=== PATIENT | male | born 1955 | race Caucasian/White ===

== ENCOUNTER 2022-07-08 10:13 | Inpatient (IN) | payer OTHER ==
[2022-07-08 10:31] VITALS: BMI 29.2
[2022-07-08] MEDS ORDERED: SODIUM CHLORIDE 0.9% 1000 ML INFUS.BAG IV ONE (10:54)
[2022-07-08] MEDS ORDERED: diazePAM CARPU-JECT 10 MG/2 ML DISP.SYRIN IVPUSH ONE ×3 (10:54→15:49)
[2022-07-08] MEDS ORDERED: ONDANSETRON 4 MG/2 ML VIAL IVPUSH ONE ×2 (10:56→15:47)
[2022-07-08] MEDS ORDERED: ACETAMINOPHEN 1000 MG/100 ML BAG IVPB ONE (10:57)
[2022-07-08] MEDS ORDERED: ACETAMINOPHEN INJECTION 100 ML IVPB ONE (11:16)
[2022-07-08] MEDS ORDERED: ONDANSETRON 4 MG/2 ML VIAL ONE ×2 (11:16→16:33)
[2022-07-08] MEDS ORDERED: diazePAM CARPU-JECT 10 MG/2 ML DISP.SYRIN ONE ×3 (11:16→16:33)
[2022-07-08 11:17] LABS: HEMATOCRIT 41.4 % (35.4-49); HEMOGLOBIN 14.5 GM/dL (11.7-16.9); MCHC 34.9 g/dl (32.0-35.9); MEAN CELL VOLUME 94.6 fl (80-96); MEAN PLT VOLUME 7.8 fl (7.5-11.1); PLATELET COUNT 335 10^3/uL (134-434); RBC 4.38 M/mm3 (4.00-5.60); RDW 15.6 % (11.9-15.9); WHITE BLOOD COUNT 14.6 K/mm3 (4.0-10.0)
[2022-07-08 11:47] LABS: ANISOCYTOSIS 0; HELMET CELLS 0; HOWELL-JOLLY BODIES 0; MACROCYTOSIS 0; OVALOCYTE 0; ROULEAU 0; SICKELED CELLS 0; TARGET CELLS 0; TEAR DROP CELLS 0; TOXIC GRANULATION 0
[2022-07-08] MEDS ORDERED: chlordiazePOXIDE HCL 25 MG CAPSULE PO ONE (13:25)
[2022-07-08] MEDS ORDERED: chlordiazePOXIDE HCL 25 MG CAPSULE ONE (13:51)
[2022-07-08 14:37] LABS: BLOOD UREA NITROGEN 14.9 mg/dL (7-18); CALCIUM 7.9 mg/dL (8.5-10.1)
[2022-07-08 14:38] LABS: ALBUMIN 3.2 g/dl (3.4-5.0)
[2022-07-08 14:40] LABS: CREATININE 1.6 mg/dL (0.55-1.3)
[2022-07-08 14:42] LABS: BILIRUBIN,TOTAL 1.2 mg/dL (0.2-1)
[2022-07-08] MEDS ORDERED: SODIUM CHLORIDE 0.9% 500 ML INFUS.BAG IV ONE ×2 (15:00→15:47)
[2022-07-08 15:57] LABS: TOT PROT 7.4 g/dl (6.4-8.2)
[2022-07-08] MEDS ORDERED: LORazepam 1 MG TABLET ONE ×2 (18:25→20:02)
[2022-07-08] MEDS: LORazepam 1 MG TABLET PO SCH (18:29)
[2022-07-08] MEDS: SODIUM CHLORIDE 1,000 ML IV SCH (19:58)
[2022-07-08] MEDS: LORazepam 1 MG TABLET PO PRN (20:00)
[2022-07-09] MEDS: HEPARIN NA (PORCINE) 5,000 UNITS/ML 1ML VIAL SQ SCH ×4 (02:12→22:09)
[2022-07-09] MEDS: LORazepam 1 MG TABLET PO SCH ×5 (02:13→22:06)
[2022-07-09] MEDS ORDERED: LORazepam 1 MG TABLET ONE ×4 (02:19→11:40)
[2022-07-09] MEDS ORDERED: HEPARIN NA (PORCINE) 5,000 UNITS/ML 1ML VIAL ONE ×3 (02:20→16:21)
[2022-07-09 06:35] LABS: BASO % 0.8 % (0-2.0); EOS % 0.1 % (0-4.5); HEMOGLOBIN 10.6 GM/dL (11.7-16.9); LYMPH % 10.1 % (8-40); MCH 33.5 pg (25.7-33.7); MCHC 35.3 g/dl (32.0-35.9); MEAN CELL VOLUME 94.8 fl (80-96); MEAN PLT VOLUME 8.2 fl (7.5-11.1); PLATELET COUNT 185 10^3/uL (134-434); RBC 3.16 M/mm3 (4.00-5.60); RDW 15.4 % (11.9-15.9); WHITE BLOOD COUNT 10.1 K/mm3 (4.0-10.0)
[2022-07-09 06:57] LABS: ALBUMIN 2.8 g/dl (3.4-5.0); CALCIUM 7.1 mg/dL (8.5-10.1); MAGNESIUM 1.3 mg/dL (1.8-2.4)
[2022-07-09 07:00] LABS: CREATININE 1.1 mg/dL (0.55-1.3); PHOSPHOROUS 2.6 mg/dL (2.5-4.9)
[2022-07-09] MEDS: LORazepam 1 MG TABLET PO PRN (09:32)
[2022-07-09] MEDS ORDERED: PANTOPRAZOLE 40 MG TABLET PO ONE (11:39)
[2022-07-09] MEDS ORDERED: THIAMINE HCL 100 MG TABLET (FP) ONE (11:39)
[2022-07-09] MEDS ORDERED: POTASSIUM CHLORIDE TABS 20 MEQ TABLET.ER (FP) PO ONE (11:39)
[2022-07-09] MEDS ORDERED: FOLIC ACID 1 MG TABLET (FP) ONE (11:39)
[2022-07-09] MEDS ORDERED: LORATADINE 10 MG TABLET ONE (11:40)
[2022-07-09] MEDS ORDERED: MULTIVITAMINS (DAILY MVI) TABLET (FP) ONE (11:40)
[2022-07-09] MEDS ORDERED: PARoxetine HCL 10 MG TABLET ONE (11:40)
[2022-07-09] MEDS: FOLIC ACID 1 MG TABLET (FP) PO SCH (11:56)
[2022-07-09] MEDS: POTASSIUM CHLORIDE TABS 20 MEQ TABLET.ER (FP) PO SCH ×2 (11:56→22:08)
[2022-07-09] MEDS: LORATADINE 10 MG TABLET PO SCH (11:56)
[2022-07-09] MEDS: PANTOPRAZOLE 40 MG TABLET PO SCH (11:57)
[2022-07-09] MEDS: MULTIVITAMINS (DAILY MVI) TABLET (FP) PO SCH (11:57)
[2022-07-09] MEDS: THIAMINE HCL 100 MG TABLET (FP) PO SCH (11:57)
[2022-07-09] MEDS: PARoxetine HCL 10 MG TABLET PO SCH (11:57)
[2022-07-09] MEDS ORDERED: MAGNESIUM SULF 50% (8.12 MEQ/2 ML-1 GM VIAL) IVPB ONE (13:34)
[2022-07-09] MEDS ORDERED: MAGNESIUM SULFATE IN WATER 2 GM/50 ML IVPB IVPB ONE (16:21)
[2022-07-09] MEDS: SODIUM CHLORIDE 1,000 ML IV SCH (16:37)
[2022-07-09] MEDS: MAGNESIUM OXIDE 400 MG TABLET (FP) PO SCH (22:08)
[2022-07-10] MEDS ORDERED: ONDANSETRON 4 MG/2 ML VIAL IVPUSH ONE (00:18)
[2022-07-10] MEDS: SODIUM CHLORIDE 1,000 ML IV SCH (03:26)
[2022-07-10] MEDS: HEPARIN NA (PORCINE) 5,000 UNITS/ML 1ML VIAL SQ SCH ×3 (06:01→21:26)
[2022-07-10] MEDS: LORazepam 1 MG TABLET PO SCH ×4 (06:02→22:00)
[2022-07-10 09:21] LABS: BASO % 0.1 % (0-2.0); EOS % 1.5 % (0-4.5); HEMATOCRIT 27.6 % (35.4-49); HEMOGLOBIN 9.4 GM/dL (11.7-16.9); LYMPH % 21.1 % (8-40); MCH 32.3 pg (25.7-33.7); MCHC 34.1 g/dl (32.0-35.9); MEAN CELL VOLUME 94.9 fl (80-96); MEAN PLT VOLUME 8.5 fl (7.5-11.1); MONO % 6.4 % (3.8-10.2); NEUT % 70.9 % (42.8-82.8); PLATELET COUNT 128 10^3/uL (134-434); RBC 2.91 M/mm3 (4.00-5.60); RDW 15.2 % (11.9-15.9)
[2022-07-10 09:49] LABS: CALCIUM 7.6 mg/dL (8.5-10.1)
[2022-07-10 09:50] LABS: ALBUMIN 2.5 g/dl (3.4-5.0); BLOOD UREA NITROGEN 10.6 mg/dL (7-18)
[2022-07-10 09:51] LABS: MAGNESIUM 1.9 mg/dL (1.8-2.4)
[2022-07-10 09:53] LABS: CREATININE 0.6 mg/dL (0.55-1.3)
[2022-07-10 09:54] LABS: BILIRUBIN,TOTAL 0.9 mg/dL (0.2-1); TOT PROT 5.6 g/dl (6.4-8.2)
[2022-07-10] MEDS: MAGNESIUM OXIDE 400 MG TABLET (FP) PO SCH ×2 (10:33→21:25)
[2022-07-10] MEDS: LORATADINE 10 MG TABLET PO SCH (10:33)
[2022-07-10] MEDS: FOLIC ACID 1 MG TABLET (FP) PO SCH (10:34)
[2022-07-10] MEDS: PANTOPRAZOLE 40 MG TABLET PO SCH (10:35)
[2022-07-10] MEDS: THIAMINE HCL 100 MG TABLET (FP) PO SCH (10:35)
[2022-07-10] MEDS: MULTIVITAMINS (DAILY MVI) TABLET (FP) PO SCH (10:35)
[2022-07-10] MEDS: PARoxetine HCL 10 MG TABLET PO SCH (11:10)
[2022-07-10 15:07] VITALS: RESP 18
[2022-07-10] MEDS: ACETAMINOPHEN 1000 MG/100 ML BAG IVPB PRN (16:45)
[2022-07-11] MEDS ORDERED: LORazepam 0.5 MG TABLET PO PRN
[2022-07-11] MEDS: HEPARIN NA (PORCINE) 5,000 UNITS/ML 1ML VIAL SQ SCH ×3 (06:17→22:46)
[2022-07-11] MEDS: LORazepam 0.5 MG TABLET PO SCH ×4 (06:17→22:46)
[2022-07-11 08:52] LABS: BASO % 0.3 % (0-2.0); EOS % 3.3 % (0-4.5); HEMATOCRIT 28.2 % (35.4-49); HEMOGLOBIN 10.1 GM/dL (11.7-16.9); LYMPH % 22.3 % (8-40); MCH 33.5 pg (25.7-33.7); MCHC 35.7 g/dl (32.0-35.9); MEAN CELL VOLUME 93.8 fl (80-96); MEAN PLT VOLUME 8.4 fl (7.5-11.1); MONO % 9.8 % (3.8-10.2); NEUT % 64.3 % (42.8-82.8); PLATELET COUNT 129 10^3/uL (134-434); RDW 14.5 % (11.9-15.9); WHITE BLOOD COUNT 4.2 K/mm3 (4.0-10.0)
[2022-07-11] MEDS: MULTIVITAMINS (DAILY MVI) TABLET (FP) PO SCH (09:05)
[2022-07-11] MEDS: FOLIC ACID 1 MG TABLET (FP) PO SCH (09:06)
[2022-07-11] MEDS: THIAMINE HCL 100 MG TABLET (FP) PO SCH (09:06)
[2022-07-11] MEDS: LORATADINE 10 MG TABLET PO SCH (09:06)
[2022-07-11] MEDS: PANTOPRAZOLE 40 MG TABLET PO SCH (09:06)
[2022-07-11] MEDS: MAGNESIUM OXIDE 400 MG TABLET (FP) PO SCH ×2 (09:06→22:46)
[2022-07-11 09:10] LABS: ALBUMIN 2.6 g/dl (3.4-5.0); CALCIUM 8.4 mg/dL (8.5-10.1)
[2022-07-11 09:11] LABS: MAGNESIUM 1.8 mg/dL (1.8-2.4)
[2022-07-11 09:13] LABS: CREATININE 0.6 mg/dL (0.55-1.3)
[2022-07-11 09:15] LABS: BILIRUBIN,TOTAL 1.1 mg/dL (0.2-1); TOT PROT 5.8 g/dl (6.4-8.2)
[2022-07-11] MEDS: PARoxetine HCL 10 MG TABLET PO SCH (09:21)
[2022-07-11] MEDS: ACETAMINOPHEN 1000 MG/100 ML BAG IVPB PRN (09:45)
[2022-07-11] MEDS ORDERED: KETOROLAC TROMETHAMINE 30 MG/1 ML VIAL IM ONE (17:15)
[2022-07-11 21:26] VITALS: TEMP 98.4
[2022-07-12] MEDS: HEPARIN NA (PORCINE) 5,000 UNITS/ML 1ML VIAL SQ SCH (04:59)
[2022-07-12] MEDS ORDERED: LORazepam 0.5 MG TABLET PO ONE (05:00)
[2022-07-12 05:13] VITALS: BP 140/88; PULSE 99
[2022-07-12] MEDS ORDERED: traMADol HCL 50 MG TABLET PO PRN (09:11)
[2022-07-12] MEDS ORDERED: ACETAMINOPHEN 325 MG TABLET (FP) PO PRN (09:12)
[2022-07-12 09:24] LABS: BASO % 0.4 % (0-2.0); EOS % 4.5 % (0-4.5); HEMATOCRIT 30.2 % (35.4-49); HEMOGLOBIN 10.9 GM/dL (11.7-16.9); LYMPH % 22.2 % (8-40); MCH 33.8 pg (25.7-33.7); MCHC 36.2 g/dl (32.0-35.9); MEAN CELL VOLUME 93.2 fl (80-96); MEAN PLT VOLUME 8.9 fl (7.5-11.1); MONO % 13.1 % (3.8-10.2); NEUT % 59.8 % (42.8-82.8); PLATELET COUNT 161 10^3/uL (134-434); RBC 3.24 M/mm3 (4.00-5.60); RDW 15.1 % (11.9-15.9); WHITE BLOOD COUNT 4.7 K/mm3 (4.0-10.0)
[2022-07-12] MEDS: FOLIC ACID 1 MG TABLET (FP) PO SCH (09:36)
[2022-07-12] MEDS: MAGNESIUM OXIDE 400 MG TABLET (FP) PO SCH (09:36)
[2022-07-12] MEDS: LORATADINE 10 MG TABLET PO SCH (09:36)
[2022-07-12] MEDS: THIAMINE HCL 100 MG TABLET (FP) PO SCH (09:37)
[2022-07-12] MEDS: MULTIVITAMINS (DAILY MVI) TABLET (FP) PO SCH (09:37)
[2022-07-12] MEDS: PANTOPRAZOLE 40 MG TABLET PO SCH (09:37)
[2022-07-12 09:42] LABS: ALBUMIN 2.8 g/dl (3.4-5.0); BLOOD UREA NITROGEN 9.2 mg/dL (7-18); MAGNESIUM 1.8 mg/dL (1.8-2.4)
[2022-07-12] MEDS: PARoxetine HCL 10 MG TABLET PO SCH (09:44)
[2022-07-12 09:45] LABS: CREATININE 0.6 mg/dL (0.55-1.3)
[2022-07-12 09:46] LABS: BILIRUBIN,TOTAL 0.7 mg/dL (0.2-1); TOT PROT 6.1 g/dl (6.4-8.2)
== END 2022-07-12 09:30 | DRG 897 ==
LOC: JER 10:13 → JERBED 16:21 → J6S 07-09 17:51
PROVIDERS: ADMIT Internal Medicine; ATTEND Nurse Practitioner Acute Care
PROC: HZ2ZZZZ Detoxification Services for Substance Abuse Treatment (ICD-10-PCS; principal; 2022-07-08)
DX: F10.239 Alcohol dependence with withdrawal, unspecified (principal); M62.82 Rhabdomyolysis; N17.9 Acute kidney failure, unspecified; J44.9 Chronic obstructive pulmonary disease, unspecified; J45.909 Unspecified asthma, uncomplicated; F10.229 Alcohol dependence with intoxication, unspecified
CPT/HCPCS: 0241U-QW; 36415; 70450-TC; 72170-TC-FY; 72192-TC; 73200-TC-RT; 73502-TC-RT-FY; 80053; 82550; 82553; 83690; 83735; 84100; 85025; 93005; 93010; 97116-GP; 97162-GP; 99291; J1644

== ENCOUNTER 2022-11-13 15:27 | Inpatient (IN) | payer OTHER ==
[2022-11-13 18:24] LABS: BASO % 0.3 % (0-2.0); EOS % 1.1 % (0-4.5); HEMATOCRIT 43.9 % (35.4-49); HEMOGLOBIN 15.1 GM/dL (11.7-16.9); LYMPH % 8.6 % (8-40); MCH 30.1 pg (25.7-33.7); MCHC 34.3 g/dl (32.0-35.9); MEAN CELL VOLUME 87.8 fl (80-96); MEAN PLT VOLUME 8.5 fl (7.5-11.1); PLATELET COUNT 224 10^3/uL (134-434); RDW 17.9 % (11.9-15.9); WHITE BLOOD COUNT 9.4 K/mm3 (4.0-10.0)
[2022-11-13 18:46] LABS: POTASSIUM 3.3 mmol/L (3.5-5.1)
[2022-11-13 18:49] LABS: CALCIUM 9.5 mg/dL (8.5-10.1)
[2022-11-13 18:50] LABS: ALBUMIN 3.9 g/dl (3.4-5.0); BLOOD UREA NITROGEN 34.7 mg/dL (7-18)
[2022-11-13 18:53] LABS: CREATININE 0.9 mg/dL (0.55-1.3)
[2022-11-13 18:55] LABS: BILIRUBIN,TOTAL 1.9 mg/dL (0.2-1)
[2022-11-13] MEDS ORDERED: diazePAM 5 MG TABLET PO ONE (19:46)
[2022-11-13] MEDS ORDERED: diazePAM 5 MG TABLET ONE (19:53)
[2022-11-14] MEDS ORDERED: FOLIC ACID INJECTION - 1 MG, THIAMINE HCL 100 MG, MULTIVIT INJECTION ADULT 10 ML in SOD... IVPB ONE ×2 (00:23→05:15)
[2022-11-14] MEDS ORDERED: POTASSIUM CHLORIDE ORAL LIQUID 20 MEQ/15 ML PO ONE (01:24)
[2022-11-14] MEDS ORDERED: LORazepam 1 MG TABLET PO PRN (01:36)
[2022-11-14 02:15] LABS: MAGNESIUM 2.4 mg/dL (1.8-2.4)
[2022-11-14] MEDS: LACTATED RINGERS SOLUTION 1,000 ML/1,000 ML INFUS.BAG IV SCH (02:25)
[2022-11-14] MEDS: LORazepam 1 MG TABLET PO SCH ×4 (05:09→22:21)
[2022-11-14 05:43] VITALS: BMI 29.2
[2022-11-14] MEDS ORDERED: PARoxetine HCL 30 MG TABLET PO SCH (10:00)
[2022-11-14 10:25] LABS: BASO % 0.4 % (0-2.0); EOS % 4.5 % (0-4.5); HEMATOCRIT 35.6 % (35.4-49); HEMOGLOBIN 12.5 GM/dL (11.7-16.9); LYMPH % 18.2 % (8-40); MCH 30.9 pg (25.7-33.7); MCHC 35.1 g/dl (32.0-35.9); MEAN CELL VOLUME 88.1 fl (80-96); MEAN PLT VOLUME 8.5 fl (7.5-11.1); MONO % 14.4 % (3.8-10.2); NEUT % 62.5 % (42.8-82.8); PLATELET COUNT 174 10^3/uL (134-434); RBC 4.05 M/mm3 (4.00-5.60); RDW 17.8 % (11.9-15.9); WHITE BLOOD COUNT 6.2 K/mm3 (4.0-10.0)
[2022-11-14 10:34] LABS: POTASSIUM 3.1 mmol/L (3.5-5.1)
[2022-11-14 10:42] LABS: BLOOD UREA NITROGEN 24.6 mg/dL (7-18); CALCIUM 8.3 mg/dL (8.5-10.1); MAGNESIUM 2.1 mg/dL (1.8-2.4)
[2022-11-14 10:47] LABS: CREATININE 0.6 mg/dL (0.55-1.3); PHOSPHOROUS 2.6 mg/dL (2.5-4.9)
[2022-11-14 10:48] LABS: BILIRUBIN,TOTAL 1.5 mg/dL (0.2-1); TOT PROT 6.2 g/dl (6.4-8.2)
[2022-11-14 10:49] LABS: ALBUMIN 2.9 g/dl (3.4-5.0)
[2022-11-14] MEDS: ENOXAPARIN NA (PORCINE) 40 MG/0.4 ML DISP.SYRIN SQ SCH (11:00)
[2022-11-14] MEDS: FOLIC ACID 1 MG TABLET (FP) PO SCH (11:00)
[2022-11-14] MEDS: PANTOPRAZOLE 40 MG TABLET PO SCH (11:01)
[2022-11-14] MEDS: MULTIVITAMINS (DAILY MVI) TABLET (FP) PO SCH (11:01)
[2022-11-14] MEDS: THIAMINE HCL 100 MG TABLET (FP) PO SCH (11:01)
[2022-11-14] MEDS: PAROXETINE HCL 20 MG, PAROXETINE HCL 10 MG PO SCH (11:01)
[2022-11-14 11:12] LABS: URINE APPEARANCE CLEAR; URINE BILIRUBIN 2+ (NEGATIVE); URINE COLOR DK YELLOW; URINE GLUCOSE (UA) NEGATIVE (NEGATIVE); URINE KETONE 2+ (NEGATIVE); URINE LEUK ESTERASE NEGATIVE (NEGATIVE); URINE NITRITE NEGATIVE (NEGATIVE); URINE PROTEIN TRACE (NEGATIVE)
[2022-11-14] MEDS: POTASSIUM CHLORIDE TABS 20 MEQ TABLET.ER (FP) PO SCH ×2 (14:15→22:21)
[2022-11-15] MEDS: LACTATED RINGERS SOLUTION 1,000 ML/1,000 ML INFUS.BAG IV SCH ×2 (01:47→20:59)
[2022-11-15] MEDS: LORazepam 1 MG TABLET PO SCH ×4 (05:34→22:15)
[2022-11-15 08:18] LABS: COCAINE, UR NEGATIVE (NEGATIVE); OPIATES, URI NEGATIVE (NEGATIVE)
[2022-11-15 08:20] LABS: METHADONE, UR NEGATIVE (NEGATIVE); PHENCYCLIDINE,URINE NEGATIVE (NEGATIVE); URINE AMPHETAMINES NEGATIVE (NEGATIVE)
[2022-11-15 08:22] LABS: URINE BARBITURATES NEGATIVE (NEGATIVE); URINE BENZODIAZEPINES NEGATIVE (NEGATIVE)
[2022-11-15] MEDS: PAROXETINE HCL 20 MG, PAROXETINE HCL 10 MG PO SCH (10:03)
[2022-11-15] MEDS: MULTIVITAMINS (DAILY MVI) TABLET (FP) PO SCH (10:03)
[2022-11-15] MEDS: THIAMINE HCL 100 MG TABLET (FP) PO SCH (10:04)
[2022-11-15] MEDS: FOLIC ACID 1 MG TABLET (FP) PO SCH (10:04)
[2022-11-15] MEDS: PANTOPRAZOLE 40 MG TABLET PO SCH (10:04)
[2022-11-15] MEDS: ENOXAPARIN NA (PORCINE) 40 MG/0.4 ML DISP.SYRIN SQ SCH (10:05)
[2022-11-15] MEDS: POTASSIUM CHLORIDE TABS 20 MEQ TABLET.ER (FP) PO SCH (10:05)
[2022-11-15 10:07] LABS: BASO % 0.6 % (0-2.0); EOS % 5.3 % (0-4.5); HEMATOCRIT 36.8 % (35.4-49); HEMOGLOBIN 12.2 GM/dL (11.7-16.9); LYMPH % 25.8 % (8-40); MCHC 33.1 g/dl (32.0-35.9); MEAN CELL VOLUME 90.7 fl (80-96); MEAN PLT VOLUME 8.6 fl (7.5-11.1); MONO % 17.7 % (3.8-10.2); NEUT % 50.6 % (42.8-82.8); PLATELET COUNT 160 10^3/uL (134-434); RBC 4.06 M/mm3 (4.00-5.60); RDW 17.4 % (11.9-15.9); WHITE BLOOD COUNT 3.7 K/mm3 (4.0-10.0)
[2022-11-15 10:22] LABS: POTASSIUM 3.7 mmol/L (3.5-5.1)
[2022-11-15 10:25] LABS: ALBUMIN 2.7 g/dl (3.4-5.0); BLOOD UREA NITROGEN 13.6 mg/dL (7-18); CALCIUM 8.3 mg/dL (8.5-10.1); MAGNESIUM 1.9 mg/dL (1.8-2.4)
[2022-11-15 10:28] LABS: CREATININE 0.6 mg/dL (0.55-1.3)
[2022-11-15 10:30] LABS: TOT PROT 5.9 g/dl (6.4-8.2)
[2022-11-16] MEDS ORDERED: LORazepam 0.5 MG TABLET PO PRN
[2022-11-16] MEDS: LORazepam 0.5 MG TABLET PO SCH ×4 (05:43→22:46)
[2022-11-16] MEDS: LACTATED RINGERS SOLUTION 1,000 ML/1,000 ML INFUS.BAG IV SCH ×3 (05:44→22:49)
[2022-11-16 08:41] LABS: HEMATOCRIT 31.9 % (35.4-49); MCH 30.5 pg (25.7-33.7); MCHC 34.6 g/dl (32.0-35.9); MEAN CELL VOLUME 88.3 fl (80-96); MEAN PLT VOLUME 7.7 fl (7.5-11.1); PLATELET COUNT 142 10^3/uL (134-434); RBC 3.61 M/mm3 (4.00-5.60); RDW 17.4 % (11.9-15.9); WHITE BLOOD COUNT 2.7 K/mm3 (4.0-10.0)
[2022-11-16 08:42] LABS: INR 1.15 (0.83-1.09); PROTHROMBIN TIME (PATIENT) 13.3 SEC (9.7-13.0)
[2022-11-16 08:59] LABS: POTASSIUM 3.9 mmol/L (3.5-5.1)
[2022-11-16 09:03] LABS: ALBUMIN 2.6 g/dl (3.4-5.0); CALCIUM 8.1 mg/dL (8.5-10.1)
[2022-11-16 09:04] LABS: BLOOD UREA NITROGEN 9.2 mg/dL (7-18); MAGNESIUM 1.7 mg/dL (1.8-2.4)
[2022-11-16 09:06] LABS: CREATININE 0.6 mg/dL (0.55-1.3)
[2022-11-16 09:08] LABS: BILIRUBIN,TOTAL 0.6 mg/dL (0.2-1); TOT PROT 5.4 g/dl (6.4-8.2)
[2022-11-16 09:18] LABS: ANISOCYTOSIS 1+; MACROCYTOSIS 0
[2022-11-16] MEDS: ENOXAPARIN NA (PORCINE) 40 MG/0.4 ML DISP.SYRIN SQ SCH (10:42)
[2022-11-16] MEDS: PAROXETINE HCL 20 MG, PAROXETINE HCL 10 MG PO SCH (10:43)
[2022-11-16] MEDS: FOLIC ACID 1 MG TABLET (FP) PO SCH (10:43)
[2022-11-16] MEDS: THIAMINE HCL 100 MG TABLET (FP) PO SCH (10:43)
[2022-11-16] MEDS: PANTOPRAZOLE 40 MG TABLET PO SCH (10:43)
[2022-11-16] MEDS: MULTIVITAMINS (DAILY MVI) TABLET (FP) PO SCH (10:43)
[2022-11-16] MEDS ORDERED: CEFTRIAXONE 1 GM in DEXTROSE 5%-WATER - 50 ML IVPB SCH (11:45)
[2022-11-16] MEDS: CEFTRIAXONE 1 GM in DEXTROSE 5%-WATER - 50 ML IVPB SCH (13:48)
[2022-11-16] MEDS ORDERED: MAGNESIUM 1GM/D5W 100ML - 100 ML IVPB IVPB ONE (14:00)
[2022-11-17] MEDS ORDERED: LORazepam 0.5 MG TABLET PO ONE (05:00)
[2022-11-17] MEDS: LACTATED RINGERS SOLUTION 1,000 ML/1,000 ML INFUS.BAG IV SCH (07:11)
[2022-11-17] MEDS: PAROXETINE HCL 20 MG, PAROXETINE HCL 10 MG PO SCH (09:53)
[2022-11-17] MEDS: ENOXAPARIN NA (PORCINE) 40 MG/0.4 ML DISP.SYRIN SQ SCH (09:53)
[2022-11-17] MEDS: FOLIC ACID 1 MG TABLET (FP) PO SCH (09:53)
[2022-11-17] MEDS: THIAMINE HCL 100 MG TABLET (FP) PO SCH (09:53)
[2022-11-17] MEDS: MULTIVITAMINS (DAILY MVI) TABLET (FP) PO SCH (09:53)
[2022-11-17] MEDS: CEFTRIAXONE 1 GM in DEXTROSE 5%-WATER - 50 ML IVPB SCH (09:53)
[2022-11-17] MEDS: PANTOPRAZOLE 40 MG TABLET PO SCH (09:53)
[2022-11-17 10:00] LABS: HEMATOCRIT 35.1 % (35.4-49); HEMOGLOBIN 12.1 GM/dL (11.7-16.9); MCH 30.4 pg (25.7-33.7); MCHC 34.4 g/dl (32.0-35.9); MEAN CELL VOLUME 88.4 fl (80-96); PLATELET COUNT 201 10^3/uL (134-434); RBC 3.97 M/mm3 (4.00-5.60); RDW 17.3 % (11.9-15.9); WHITE BLOOD COUNT 3.3 K/mm3 (4.0-10.0)
[2022-11-17 10:26] LABS: POTASSIUM 4.3 mmol/L (3.5-5.1)
[2022-11-17 10:31] LABS: CALCIUM 8.5 mg/dL (8.5-10.1)
[2022-11-17 10:32] LABS: ALBUMIN 2.9 g/dl (3.4-5.0)
[2022-11-17 10:34] LABS: CREATININE 0.6 mg/dL (0.55-1.3)
[2022-11-17 10:36] LABS: BILIRUBIN,TOTAL 0.5 mg/dL (0.2-1); MAGNESIUM 1.9 mg/dL (1.8-2.4); TOT PROT 6.3 g/dl (6.4-8.2)
[2022-11-17 10:56] LABS: ANISOCYTOSIS 0; MACROCYTOSIS 1+
[2022-11-18] MEDS: PAROXETINE HCL 20 MG, PAROXETINE HCL 10 MG PO SCH (10:14)
[2022-11-18] MEDS: ENOXAPARIN NA (PORCINE) 40 MG/0.4 ML DISP.SYRIN SQ SCH (10:14)
[2022-11-18] MEDS: CEFTRIAXONE 1 GM in DEXTROSE 5%-WATER - 50 ML IVPB SCH (10:14)
[2022-11-18] MEDS: THIAMINE HCL 100 MG TABLET (FP) PO SCH (10:15)
[2022-11-18] MEDS: PANTOPRAZOLE 40 MG TABLET PO SCH (10:15)
[2022-11-18] MEDS: MULTIVITAMINS (DAILY MVI) TABLET (FP) PO SCH (10:15)
[2022-11-18] MEDS: FOLIC ACID 1 MG TABLET (FP) PO SCH (10:15)
[2022-11-18 12:33] VITALS: RESP 20
[2022-11-18 23:00] VITALS: BP 142/88; PULSE 91; TEMP 98.2
== END 2022-11-19 02:30 | DRG 897 ==
LOC: JER 15:27 → JERBED 19:59 → INTOOBSV 19:59 → UNDOADMOB 19:59 → OBSVTOIN 19:59 → JERBED 11-14 01:30 → OBSVTOIN 11-14 01:30 → J8W 11-14 02:40
PROVIDERS: ADMIT Internal Medicine; ATTEND Nurse Practitioner Family
PROC: HZ2ZZZZ Detoxification Services for Substance Abuse Treatment (ICD-10-PCS; principal; 2022-11-13)
DX: F10.239 Alcohol dependence with withdrawal, unspecified (principal); M62.82 Rhabdomyolysis; N39.0 Urinary tract infection, site not specified; R74.01 Elevation of levels of liver transaminase levels; E87.6 Hypokalemia; E83.42 Hypomagnesemia; Z85.118 Personal history of other malignant neoplasm of bronchus and lung
CPT/HCPCS: 36415; 70450-TC; 71045-TC-FY; 72125-TC; 72170-TC-FY; 80053; 80307; 81003; 82550; 82553; 82962; 83036; 83735; 84100; 84443; 85025; 85610; 87086; 87186; 87635; 93005; 93010; 97116-GP; 99285-25

== ENCOUNTER 2023-02-03 10:06 | Inpatient (IN) | payer OTHER ==
[2023-02-03 10:30] VITALS: BMI 27.8
[2023-02-03] MEDS ORDERED: PANTOPRAZOLE SODIUM 40 MG VIAL IVPUSH ONE (10:38)
[2023-02-03] MEDS ORDERED: CEFTRIAXONE 1,000 MG in DEXTROSE 5%-WATER - 50 ML IVPB ONE (10:39)
[2023-02-03] MEDS ORDERED: PANTOPRAZOLE SODIUM 40 MG VIAL ONE ×2 (11:35→16:33)
[2023-02-03] MEDS ORDERED: CEFTRIAXONE 1 GM/50 ML BAG ONE (11:35)
[2023-02-03 12:19] LABS: BASO % 0.3 % (0-2.0); EOS % 0.1 % (0-4.5); HEMATOCRIT 42.7 % (35.4-49); HEMOGLOBIN 14.4 GM/dL (11.7-16.9); MCH 30.2 pg (25.7-33.7); MCHC 33.7 g/dl (32.0-35.9); MEAN CELL VOLUME 89.6 fl (80-96); MEAN PLT VOLUME 8.8 fl (7.5-11.1); MONO % 8.2 % (3.8-10.2); NEUT % 79.4 % (42.8-82.8); PLATELET COUNT 220 10^3/uL (134-434); RBC 4.76 M/mm3 (4.00-5.60); RDW 14.8 % (11.9-15.9); RETICULOCYTES 0.87 % (0.5-1.5); WHITE BLOOD COUNT 10.8 K/mm3 (4.0-10.0)
[2023-02-03 12:24] LABS: INR 1.05 (0.83-1.09); PROTHROMBIN TIME (PATIENT) 12.2 SEC (9.7-13.0)
[2023-02-03 12:26] LABS: ACTIVATED PTT 26.8 SECONDS (25.2-36.5)
[2023-02-03 12:47] LABS: POTASSIUM 3.2 mmol/L (3.5-5.1)
[2023-02-03 12:49] LABS: BLOOD UREA NITROGEN 32.9 mg/dL (7-18); CALCIUM 9.4 mg/dL (8.5-10.1)
[2023-02-03 12:50] LABS: ALBUMIN 3.7 g/dl (3.4-5.0)
[2023-02-03 12:54] LABS: BILIRUBIN,TOTAL 1.6 mg/dL (0.2-1); TOT PROT 7.4 g/dl (6.4-8.2)
[2023-02-03 13:42] LABS: URINE APPEARANCE CLEAR; URINE BILIRUBIN 1+ (NEGATIVE); URINE COLOR DK YELLOW; URINE GLUCOSE (UA) NEGATIVE (NEGATIVE)
[2023-02-03 13:44] LABS: URINE KETONE 1+ (NEGATIVE)
[2023-02-03 13:45] LABS: PH,URINE 5.5 (5.0-8.0); URINE LEUK ESTERASE TRACE (NEGATIVE); URINE NITRITE NEGATIVE (NEGATIVE); URINE PROTEIN 1+ (NEGATIVE)
[2023-02-03 15:17] LABS: EPI CELLS 5 /uL (0-25.1); HYALINE CASTS 1 /uL (0-3.1); URINE BACTERIA 18 /uL (0-1359); URINE RBC 34 /uL (0-23.9); URINE WBC 9 /uL (0-25.8)
[2023-02-03] MEDS ORDERED: SODIUM CHLORIDE 1,000 ML IV SCH ×2 (16:00→16:45)
[2023-02-03] MEDS ORDERED: PANTOPRAZOLE SODIUM 160 MG in SODIUM CHLORIDE 250 ML IVPB SCH (16:30)
[2023-02-03] MEDS: DEXTROSE 5%-LACTATED RINGERS 1,000 ML IV SCH (17:37)
[2023-02-03] MEDS ORDERED: chlordiazePOXIDE HCL 25 MG CAPSULE ONE (22:03)
[2023-02-03] MEDS: chlordiazePOXIDE HCL 25 MG CAPSULE PO SCH (22:13)
[2023-02-03] MEDS: CLOTRIMAZOLE 1% CREAM TP SCH (22:27)
[2023-02-03] MEDS ORDERED: MELATONIN 5 MG TABLETS ONE (23:20)
[2023-02-03] MEDS: MELATONIN 5 MG TABLETS PO SCH (23:35)
[2023-02-04] MEDS ORDERED: PANTOPRAZOLE SODIUM 160 MG in SODIUM CHLORIDE 290 ML IVPB SCH (03:15)
[2023-02-04] MEDS: chlordiazePOXIDE HCL 25 MG CAPSULE PO SCH (05:56)
[2023-02-04 09:20] LABS: BASO % 0.2 % (0-2.0); EOS % 2.4 % (0-4.5); HEMATOCRIT 37.7 % (35.4-49); HEMOGLOBIN 12.3 GM/dL (11.7-16.9); LYMPH % 26.7 % (8-40); MCH 29.6 pg (25.7-33.7); MCHC 32.6 g/dl (32.0-35.9); MEAN CELL VOLUME 90.7 fl (80-96); MEAN PLT VOLUME 8.9 fl (7.5-11.1); MONO % 7.8 % (3.8-10.2); NEUT % 62.9 % (42.8-82.8); PLATELET COUNT 150 10^3/uL (134-434); RBC 4.15 M/mm3 (4.00-5.60); RDW 14.6 % (11.9-15.9); WHITE BLOOD COUNT 5.4 K/mm3 (4.0-10.0)
[2023-02-04 09:41] LABS: CHLORIDE 101 mmol/L (98-107); SODIUM 140 mmol/L (136-145)
[2023-02-04 09:44] LABS: CO2 31 mmol/L (21-32); GLUCOSE,RANDOM 100 mg/dL (74-106); MAGNESIUM 1.9 mg/dL (1.8-2.4)
[2023-02-04 09:45] LABS: BLOOD UREA NITROGEN 17.8 mg/dL (7-18)
[2023-02-04 09:47] LABS: CREATININE 0.8 mg/dL (0.55-1.3); PHOSPHOROUS 2.7 mg/dL (2.5-4.9); SGOT/AST 41 U/L (15-37); SGPT/ALT 27 U/L (13-61)
[2023-02-04 09:48] LABS: BILIRUBIN,TOTAL 1.2 mg/dL (0.2-1)
[2023-02-04] MEDS: FOLIC ACID 1 MG TABLET (FP) PO SCH (09:48)
[2023-02-04] MEDS: THIAMINE HCL 100 MG TABLET (FP) PO SCH (09:48)
[2023-02-04 10:34] LABS: GAMMA GLUTAMYL TRANSPEPTIDASE 104 U/L (5-85)
[2023-02-04 10:37] LABS: BILIRUBIN,DIRECT 0.4 mg/dL (0.0-0.2)
[2023-02-04 10:38] LABS: ALBUMIN 2.9 g/dl (3.4-5.0); ALK PHOS 96 U/L (45-117); ANION GAP 8 mmol/L (4-13); CALCIUM 7.6 mg/dL (8.5-10.1); POTASSIUM 2.6 mmol/L (3.5-5.1)
[2023-02-04] MEDS ORDERED: POTASSIUM CHLORIDE TABS 20 MEQ TABLET.ER (FP) PO ONE ×3 (11:00→18:00)
[2023-02-04] MEDS: CLOTRIMAZOLE 1% CREAM TP SCH ×2 (11:04→21:33)
[2023-02-04] MEDS: KCL 10 MEQ IVPB 10 MEQ/100 ML INFUS.BAG IVPB SCH ×3 (12:03→14:03)
[2023-02-04 14:18] LABS: CALCIUM 8.3 mg/dL (8.5-10.1)
[2023-02-04 14:19] LABS: BLOOD UREA NITROGEN 16.6 mg/dL (7-18)
[2023-02-04 14:22] LABS: CREATININE 0.8 mg/dL (0.55-1.3)
[2023-02-04] MEDS: DEXTROSE 5%-LACTATED RINGERS 1,000 ML IV SCH ×2 (15:07→17:15)
[2023-02-04 20:44] LABS: POTASSIUM 3.3 mmol/L (3.5-5.1)
[2023-02-04 20:45] LABS: CALCIUM 7.8 mg/dL (8.5-10.1); MAGNESIUM 1.9 mg/dL (1.8-2.4)
[2023-02-04 20:46] LABS: BLOOD UREA NITROGEN 15.7 mg/dL (7-18)
[2023-02-04] MEDS: PANTOPRAZOLE SODIUM 40 MG VIAL IVPUSH SCH (21:29)
[2023-02-04] MEDS: POTASSIUM CHLORIDE TABS 20 MEQ TABLET.ER (FP) PO SCH (21:29)
[2023-02-04] MEDS: MELATONIN 5 MG TABLETS PO SCH (21:29)
[2023-02-05] MEDS ORDERED: POTASSIUM CHLORIDE TABS 20 MEQ TABLET.ER (FP) PO ONE (01:18)
[2023-02-05] MEDS: KCL 10 MEQ IVPB 10 MEQ/100 ML INFUS.BAG IVPB SCH ×3 (01:50→04:04)
[2023-02-05 07:44] LABS: BASO % 0.4 % (0-2.0); EOS % 4.8 % (0-4.5); HEMATOCRIT 34.9 % (35.4-49); HEMOGLOBIN 11.5 GM/dL (11.7-16.9); LYMPH % 41.7 % (8-40); MCH 30.1 pg (25.7-33.7); MCHC 32.9 g/dl (32.0-35.9); MEAN CELL VOLUME 91.4 fl (80-96); MEAN PLT VOLUME 8.5 fl (7.5-11.1); MONO % 12.4 % (3.8-10.2); NEUT % 40.7 % (42.8-82.8); PLATELET COUNT 129 10^3/uL (134-434); RBC 3.82 M/mm3 (4.00-5.60); RDW 14.6 % (11.9-15.9); WHITE BLOOD COUNT 3.8 K/mm3 (4.0-10.0)
[2023-02-05 08:26] LABS: POTASSIUM 3.9 mmol/L (3.5-5.1)
[2023-02-05 08:34] LABS: BILIRUBIN,TOTAL 0.7 mg/dL (0.2-1)
[2023-02-05 08:36] LABS: ALBUMIN 2.5 g/dl (3.4-5.0); BLOOD UREA NITROGEN 11.6 mg/dL (7-18); MAGNESIUM 1.9 mg/dL (1.8-2.4)
[2023-02-05 08:38] LABS: CREATININE 0.8 mg/dL (0.55-1.3)
[2023-02-05 08:39] LABS: PHOSPHOROUS 2.8 mg/dL (2.5-4.9)
[2023-02-05 08:40] LABS: TOT PROT 5.3 g/dl (6.4-8.2)
[2023-02-05] MEDS: POTASSIUM CHLORIDE TABS 20 MEQ TABLET.ER (FP) PO SCH ×2 (09:25→23:36)
[2023-02-05] MEDS: FOLIC ACID 1 MG TABLET (FP) PO SCH (09:25)
[2023-02-05] MEDS: PANTOPRAZOLE SODIUM 40 MG VIAL IVPUSH SCH (09:25)
[2023-02-05] MEDS: LEVOTHYROXINE NA 112 MCG TABLET (FP) PO SCH (09:26)
[2023-02-05] MEDS: CLOTRIMAZOLE 1% CREAM TP SCH ×2 (09:26→23:38)
[2023-02-05] MEDS: THIAMINE HCL 100 MG TABLET (FP) PO SCH (09:26)
[2023-02-05] MEDS ORDERED: BENZOCAINE 20% 57 GM BOTTLE TP ONE (13:57)
[2023-02-05] MEDS: chlordiazePOXIDE HCL 25 MG CAPSULE PO SCH ×2 (14:57→23:37)
[2023-02-05] MEDS ORDERED: BISACODYL 5 MG TABLET.DR (FP) PO ONE (16:28)
[2023-02-05] MEDS ORDERED: PEG 3350/NA SULF BICARB CL/KCL 4000 ML SOLN.RECON PO ONE (17:00)
[2023-02-05] MEDS: DEXTROSE 5%-LACTATED RINGERS 1,000 ML IV SCH (18:26)
[2023-02-05] MEDS: MELATONIN 5 MG TABLETS PO SCH (23:37)
[2023-02-06] MEDS: chlordiazePOXIDE HCL 25 MG CAPSULE PO SCH ×3 (06:49→22:36)
[2023-02-06] MEDS: LEVOTHYROXINE NA 112 MCG TABLET (FP) PO SCH (06:49)
[2023-02-06 09:13] LABS: HEMATOCRIT 37.9 % (35.4-49); HEMOGLOBIN 13.1 GM/dL (11.7-16.9); MCH 30.9 pg (25.7-33.7); MCHC 34.5 g/dl (32.0-35.9); MEAN CELL VOLUME 89.4 fl (80-96); MEAN PLT VOLUME 8.8 fl (7.5-11.1); PLATELET COUNT 170 10^3/uL (134-434); RBC 4.24 M/mm3 (4.00-5.60); RDW 14.6 % (11.9-15.9)
[2023-02-06 09:19] LABS: WHITE BLOOD COUNT 5.4 K/mm3 (4.0-10.0)
[2023-02-06 09:31] LABS: POTASSIUM 3.9 mmol/L (3.5-5.1)
[2023-02-06 09:51] LABS: BLOOD UREA NITROGEN 6.9 mg/dL (7-18)
[2023-02-06 09:52] LABS: MAGNESIUM 1.8 mg/dL (1.8-2.4)
[2023-02-06 09:54] LABS: PHOSPHOROUS 2.9 mg/dL (2.5-4.9)
[2023-02-06 09:55] LABS: BILIRUBIN,TOTAL 0.6 mg/dL (0.2-1); CREATININE 0.8 mg/dL (0.55-1.3); TOT PROT 6.4 g/dl (6.4-8.2)
[2023-02-06 09:58] LABS: ALBUMIN 3.2 g/dl (3.4-5.0); CALCIUM 9.4 mg/dL (8.5-10.1)
[2023-02-06] MEDS: THIAMINE HCL 100 MG TABLET (FP) PO SCH (13:07)
[2023-02-06] MEDS: POTASSIUM CHLORIDE TABS 20 MEQ TABLET.ER (FP) PO SCH (13:07)
[2023-02-06] MEDS: PANTOPRAZOLE 40 MG TABLET PO SCH (13:08)
[2023-02-06] MEDS: FOLIC ACID 1 MG TABLET (FP) PO SCH (13:09)
[2023-02-06] MEDS: CLOTRIMAZOLE 1% CREAM TP SCH ×2 (13:13→22:35)
[2023-02-06] MEDS ORDERED: LORazepam 1 MG TABLET PO PRN (15:33)
[2023-02-06] MEDS: DEXTROSE 5%-LACTATED RINGERS 1,000 ML IV SCH (17:48)
[2023-02-06] MEDS: MELATONIN 5 MG TABLETS PO SCH (22:36)
[2023-02-07] MEDS: LEVOTHYROXINE NA 112 MCG TABLET (FP) PO SCH (06:10)
[2023-02-07 07:31] LABS: HEMATOCRIT 36.1 % (35.4-49); MCH 29.9 pg (25.7-33.7); MCHC 33.2 g/dl (32.0-35.9); MEAN CELL VOLUME 90.2 fl (80-96); MEAN PLT VOLUME 8.5 fl (7.5-11.1); PLATELET COUNT 161 10^3/uL (134-434); RDW 14.5 % (11.9-15.9); WHITE BLOOD COUNT 4.1 K/mm3 (4.0-10.0)
[2023-02-07 07:52] LABS: POTASSIUM 3.7 mmol/L (3.5-5.1)
[2023-02-07 07:54] LABS: ALBUMIN 2.8 g/dl (3.4-5.0); MAGNESIUM 1.7 mg/dL (1.8-2.4)
[2023-02-07 07:55] LABS: BLOOD UREA NITROGEN 9.5 mg/dL (7-18)
[2023-02-07 07:56] LABS: CALCIUM 8.2 mg/dL (8.5-10.1)
[2023-02-07 07:57] LABS: CREATININE 0.9 mg/dL (0.55-1.3); PHOSPHOROUS 4.1 mg/dL (2.5-4.9)
[2023-02-07 07:59] LABS: BILIRUBIN,TOTAL 0.6 mg/dL (0.2-1); TOT PROT 5.7 g/dl (6.4-8.2)
[2023-02-07] MEDS: FOLIC ACID 1 MG TABLET (FP) PO SCH (09:46)
[2023-02-07] MEDS: chlordiazePOXIDE HCL 25 MG CAPSULE PO SCH ×4 (09:46→21:02)
[2023-02-07] MEDS: THIAMINE HCL 100 MG TABLET (FP) PO SCH (09:46)
[2023-02-07] MEDS: PANTOPRAZOLE 40 MG TABLET PO SCH (09:46)
[2023-02-07] MEDS: CLOTRIMAZOLE 1% CREAM TP SCH ×2 (09:47→21:03)
[2023-02-07] MEDS ORDERED: ACETAMINOPHEN 325 MG TABLET (FP) PO ONE (12:08)
[2023-02-07] MEDS ORDERED: MAGNESIUM OXIDE 400 MG TABLET (FP) PO ONE (20:07)
[2023-02-07] MEDS: MELATONIN 5 MG TABLETS PO SCH (21:01)
[2023-02-08] MEDS: LEVOTHYROXINE NA 112 MCG TABLET (FP) PO SCH (06:16)
[2023-02-08 08:24] LABS: HEMATOCRIT 38.6 % (35.4-49); HEMOGLOBIN 12.8 GM/dL (11.7-16.9); MCH 30.2 pg (25.7-33.7); MEAN CELL VOLUME 91.5 fl (80-96); MEAN PLT VOLUME 8.1 fl (7.5-11.1); PLATELET COUNT 194 10^3/uL (134-434); RBC 4.22 M/mm3 (4.00-5.60); RDW 15.1 % (11.9-15.9); WHITE BLOOD COUNT 5.1 K/mm3 (4.0-10.0)
[2023-02-08 08:42] LABS: POTASSIUM 4.2 mmol/L (3.5-5.1)
[2023-02-08 08:44] LABS: BLOOD UREA NITROGEN 16.2 mg/dL (7-18); CALCIUM 8.8 mg/dL (8.5-10.1); MAGNESIUM 1.9 mg/dL (1.8-2.4)
[2023-02-08 08:48] LABS: CREATININE 0.9 mg/dL (0.55-1.3)
[2023-02-08] MEDS: THIAMINE HCL 100 MG TABLET (FP) PO SCH (09:28)
[2023-02-08] MEDS: PANTOPRAZOLE 40 MG TABLET PO SCH (09:29)
[2023-02-08] MEDS: FOLIC ACID 1 MG TABLET (FP) PO SCH (09:29)
[2023-02-08] MEDS: chlordiazePOXIDE HCL 25 MG CAPSULE PO SCH ×2 (09:29→21:29)
[2023-02-08] MEDS: CLOTRIMAZOLE 1% CREAM TP SCH ×2 (09:29→21:31)
[2023-02-08] MEDS: MELATONIN 5 MG TABLETS PO SCH (21:28)
[2023-02-09] MEDS: LEVOTHYROXINE NA 112 MCG TABLET (FP) PO SCH (06:10)
[2023-02-09] MEDS: CLOTRIMAZOLE 1% CREAM TP SCH (09:20)
[2023-02-09] MEDS: THIAMINE HCL 100 MG TABLET (FP) PO SCH (09:20)
[2023-02-09] MEDS: PANTOPRAZOLE 40 MG TABLET PO SCH (09:20)
[2023-02-09] MEDS: FOLIC ACID 1 MG TABLET (FP) PO SCH (09:20)
[2023-02-09 18:55] VITALS: BP 107/70; PULSE 95; RESP 18; TEMP 97.9
== END 2023-02-09 19:56 | DRG 378 ==
LOC: JER 10:06 → JERBED 14:22 → J4S 02-04 01:08
PROVIDERS: ADMIT Internal Medicine; ATTEND Internal Medicine
PROC: 0DB68ZX Excision of Stomach, Via Natural or Artificial Opening Endoscopic, Diagnostic (ICD-10-PCS; 2023-02-05)
PROC: 0DB98ZX Excision of Duodenum, Via Natural or Artificial Opening Endoscopic, Diagnostic (ICD-10-PCS; 2023-02-05)
PROC: 0DB58ZX Excision of Esophagus, Via Natural or Artificial Opening Endoscopic, Diagnostic (ICD-10-PCS; principal; 2023-02-05 12:45)
PROC: 0DJD8ZZ Inspection of Lower Intestinal Tract, Via Natural or Artificial Opening Endoscopic (ICD-10-PCS; 2023-02-06)
DX: K25.4 Chronic or unspecified gastric ulcer with hemorrhage (principal); D62 Acute posthemorrhagic anemia; F10.239 Alcohol dependence with withdrawal, unspecified; S22.000A Wedge compression fracture of unspecified thoracic vertebra, initial encounter for closed fracture; K22.10 Ulcer of esophagus without bleeding; K22.2 Esophageal obstruction; K92.0 Hematemesis; K70.10 Alcoholic hepatitis without ascites; E03.9 Hypothyroidism, unspecified; E87.6 Hypokalemia; K64.8 Other hemorrhoids; K21.00 Gastro-esophageal reflux disease with esophagitis, without bleeding; K44.9 Diaphragmatic hernia without obstruction or gangrene; W19.XXXA Unspecified fall, initial encounter; Y93.9 Activity, unspecified; Y92.89 Other specified places as the place of occurrence of the external cause; Y99.9 Unspecified external cause status
CPT/HCPCS: 36415; 71045-TC-FY; 72128-TC; 72131-TC; 72146-TC; 72148-TC; 76700-TC; 80048; 80053; 80307; 81003; 82105; 82140; 82247; 82248; 82272; 82533; 82607; 82728; 82746; 82977; 83010; 83516; 83540; 83550; 83615; 83735; 84075; 84100; 84436; 84443; 84450; 84460; 84466; 84484; 85025; 85027; 85045; 85610; 85730; 86038; 86140; 86705; 86803; 86850; 86900; 86901; 87086; 87340; 87517; 87635; 88305-TC; 93005; 93010; 97116-GP; 97161-GP; 99285-25